=== PATIENT | male | born 1995 | race Caucasian/White ===

== ENCOUNTER 2016-08-17 12:58 | Emergency (ER) | payer OTHER ==
[2016-08-17 13:02] VITALS: BMI 33.3
[2016-08-17] MEDS ORDERED: DIPHTH,PERTUSS(ACELL),TET VAC 0.5 ML VIAL IM ONE (14:06)
--- NOTE | 2016-08-17 14:06 | PDOC ---
[id number] No Limitations - History of Present Illness Initial Comments: 08/17/16 14:10 The patient is a 21 year old male presenting with his friend, with no significant past medical history, who presents to the emergency department with a laceration to the forehead after falling today. He reports that he got up from bed, felt dizzy and had a syncopal episode. He fell and hit his head against the radiator. He states that he has minimal pain from the area. The patient does not recall his last Tetanus shot. The patient denies chest pain, shortness of breath, headache and dizziness. Denies fever, chills, nausea, vomit, diarrhea and constipation. Allergies: None Past surgical history: None reported Social history: +Tobacco use reported. No alcohol or drug use reported <Thomas Alexander - Last Filed: 08/17/16 14:10> <Stacy Bojorquez - Last Filed: 08/17/16 14:28> - General Chief Complaint: Syncope/Near Syncope Stated Complaint: SYNCOPE/NEAR SYNCOPE, FACE INJURY Time Seen by Provider: 08/17/16 13:50 Past History <Thomas Alexander - Last Filed: 08/17/16 14:10> - Past Medical History Other medical history: NONE - Psycho/Social/Smoking Cessation Hx Anxiety: No Suicidal Ideation: No Smoking History: Current every day smoker Number of Cigarettes Smoked Daily: 4 Information on smoking cessation initiated: No Hx Alcohol Use: No Drug/Substance Use Hx: No Substance Use Type: None <Stacy Bojorquez - Last Filed: 08/17/16 14:28> - Past Medical History Allergies/Adverse Reactions: Allergies Allergy/AdvReac Type Severity Reaction Status Date / Time No Known Allergies Allergy Verified 08/17/16 13:02 Home Medications: Ambulatory Orders NK [No Known Home Medication] 08/17/16 Review of Systems - Review of Systems Able to Perform ROS?: Yes Comments:: 08/17/16 14:10 GENERAL/CONSTITUTIONAL: No fever or chills. No weakness. HEAD, EYES, EARS, NOSE AND THROAT: +Forehead laceration. No change in vision. No ear pain or discharge. No sore throat. CARDIOVASCULAR: No chest pain or shortness of breath RESPIRATORY: No cough, wheezing, or hemoptysis. GASTROINTESTINAL: No nausea, vomiting, diarrhea or constipation. GENITOURINARY: No dysuria, frequency, or change in urination. MUSCULOSKELETAL: No joint or muscle swelling or pain. No neck or back pain. SKIN: No rash NEUROLOGIC: No headache, vertigo, loss of consciousness, or change in strength/ sensation. ENDOCRINE: No increased thirst. No abnormal weight change HEMATOLOGIC/LYMPHATIC: No anemia, easy bleeding, or history of blood clots. ALLERGIC/IMMUNOLOGIC: No hives or skin allergy. <Thomas Alexander - Last Filed: 08/17/16 14:10> *Physical Exam - Vital Signs Last Vital Signs Temp Pulse Resp BP Pulse Ox 98.1 F 77 20 131/79 99 08/17/16 12:59 08/17/16 12:59 08/17/16 12:59 08/17/16 12:59 08/17/16 12:59 <Thomas Alexander - Last Filed: 08/17/16 14:10> - Vital Signs Last Vital Signs Temp Pulse Resp BP Pulse Ox 98.1 F 77 20 131/79 99 08/17/16 12:59 08/17/16 12:59 08/17/16 12:59 08/17/16 12:59 08/17/16 12:59 - Physical Exam Comments: GENERAL: Awake, alert, and fully oriented, in no acute distress HEAD: +Anterior forehead laceration 1.5 cm, linear. EYES: PERRLA, EOMI, sclera anicteric, conjunctiva clear ENT: Auricles normal inspection, hearing grossly normal, nares patent, oropharynx clear without exudates. Moist mucosa NECK: Normal ROM, supple, no lymphadenopathy, JVD, or masses LUNGS: Breath sounds equal, clear to auscultation bilaterally. No wheezes, and no crackles HEART: Regular rate and rhythm, normal S1 and S2, no murmurs, rubs or gallops ABDOMEN: Soft, nontender, normoactive bowel sounds. No guarding, no rebound. No masses EXTREMITIES: Normal range of motion, no edema. No clubbing or cyanosis. No cords, erythema, or tenderness NEUROLOGICAL: Cranial nerves II through XII grossly intact. Normal speech, normal gait SKIN: Warm, Dry, normal turgor, no rashes or lesions noted with exception of laceration noted above. <Stacy Bojorquez - Last Filed: 08/17/16 14:28> Procedures - Laceration/Wound Repair Face Wound Length: to 2.5 cm Wound Explored: clean, no foreign body present Wound's Depth, Shape: superficial, linear Anesthesia: 1% Lidocaine Amount of Anesthetic (ccs): 1 Wound Repaired With: Sutures Suture Size/Type: 5:0 (chromic) Number of Sutures: 2 (simple interrupted) Layer Closure: No Sterile Dressing Applied: Yes Progress: Pt tolerated well. +Hemostasis. <Stacy Bojorquez - Last Filed: 08/17/16 14:28> Heart Score/ECG Review - ECG Impressions Comment:: EKG read 13:36- NSR 67 bpm, no acute ST/T changes <Stacy Bojorquez - Last Filed: 08/17/16 14:28> *DC/Admit/Observation/Transfer - Attestations Scribe Attestion: 08/17/16 14:11 Documentation prepared by Thomas Alexander, acting as medical referral coordinator for Stacy Bojorquez MD <Thomas Alexander - Last Filed: 08/17/16 14:10> - Discharge Dispostion Admit: No <Stacy Bojorquez - Last Filed: 08/17/16 14:28> Diagnosis at time of Disposition: Laceration of forehead Qualifiers: Encounter type: initial encounter Qualified Code(s): S01.81XA - Laceration without foreign body of other part of head, initial encounter - Discharge Dispostion Disposition: HOME Condition at time of disposition: Stable - Patient Instructions Printed Discharge Instructions: DI for Syncope in Adults (Fainting), DI for Closed Head Injury, How to Care for Absorbable Sutures
[2016-08-17 14:25] VITALS: BP 128/77; PULSE 80; TEMP 98.6
--- NOTE | 2016-08-17 18:20 | EKG ---
Test Reason : Blood Pressure : / mmHG Vent. Rate : 067 BPM Atrial Rate : 067 BPM P-R Int : 164 ms QRS Dur : 096 ms QT Int : 366 ms P-R-T Axes : 031 035 026 degrees QTc Int : 386 ms NORMAL SINUS RHYTHM NORMAL ECG NO PREVIOUS ECGS AVAILABLE Confirmed by JER MIDDLETON MD ([id number]) on 08/17/2016 6:20:10 PM Referred By: Confirmed By:JER MIDDLETON MD
== END 2016-08-17 14:23 | disposition home or self-care (01) ==
LOC: JER 12:58
PROC: 3E0234Z Introduction of Serum, Toxoid and Vaccine into Muscle, Percutaneous Approach (ICD-10-PCS; principal; 2016-08-17)
PROC: 0HQ1XZZ Repair Face Skin, External Approach (ICD-10-PCS; 2016-08-17)
DX: R55 Syncope and collapse (principal); S01.81XA Laceration without foreign body of other part of head, initial encounter; W06.XXXA Fall from bed, initial encounter; Y93.89 Activity, other specified; Y92.032 Bedroom in apartment as the place of occurrence of the external cause; F17.210 Nicotine dependence, cigarettes, uncomplicated
CPT/HCPCS: 12011-25; 90471; 93005; 93010; 99285-25

== ENCOUNTER 2016-10-10 12:36 | Emergency (ER) | payer OTHER ==
[2016-10-10 12:42] VITALS: BP 143/76; PULSE 74; TEMP 98.2; BMI 31.4
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
== END 2016-10-10 14:40 | disposition home or self-care (01) ==
LOC: JERFT 12:36
PROC: 2W3EX1Z Immobilization of Right Hand using Splint (ICD-10-PCS; principal; 2016-10-10)
DX: S63.501A Unspecified sprain of right wrist, initial encounter (principal); W22.09XA Striking against other stationary object, initial encounter; Y93.89 Activity, other specified; Y92.410 Unspecified street and highway as the place of occurrence of the external cause
CPT/HCPCS: 73070-TC-RT; 73110-TC-RT; 73130-TC-RT; 99281-25